=== PATIENT | male | born 1990 | race Caucasian/White ===

== ENCOUNTER 2018-04-14 17:17 | Emergency (ER) | payer SELFPAY ==
[~2018-04-14] VITALS: Ht 170.2 cm; Wt 59.0 kg
[2018-04-14 17:38] VITALS: BP 134/92
[2018-04-14] MEDS ORDERED: GABA400C PO (17:47)
== END 2018-04-14 19:13 | disposition left against medical advice (07) ==
LOC: ER 17:20
DX: Z03.89 Encounter for observation for other suspected diseases and conditions ruled out (principal)
CPT/HCPCS: 99281